=== PATIENT | female | born 1970 | race Asian ===

== ENCOUNTER 2021-11-06 16:33 | Emergency (ER) | payer BC ==
[~2021-11-06] VITALS: Ht 149.9 cm; Wt 54.1 kg
[2021-11-06 16:36] VITALS: BP 143/80
[2021-11-06] MEDS ORDERED: cephALEXin 500 MG CAP PO ONE (17:30)
[2021-11-06 18:33] LABS: APPEARANCE,URINE CLEAR (CLEAR); BILIRUBIN,URINE NEGATIVE (NEGATIVE); BLOOD, URINE NEGATIVE (NEGATIVE); COLOR,URINE YELLOW (YELLOW); LEUKOCYTE ESTERASE ,URINE NEGATIVE (NEGATIVE); NITRITE, URINE NEGATIVE (NEGATIVE); UGLUCOSE NEGATIVE (NEGATIVE)
[2021-11-06] MEDS ORDERED: PYR100 PO (18:44)
[2021-11-06] MEDS ORDERED: CEPH-588 PO (18:44)
[2021-11-06 19:05] VITALS: BP 139/92
== END 2021-11-06 19:06 | disposition home or self-care (01) ==
LOC: MED 16:33
DX: R30.0 Dysuria (principal); I10 Essential (primary) hypertension; R10.30 Lower abdominal pain, unspecified; Z90.710 Acquired absence of both cervix and uterus; Z79.2 Long term (current) use of antibiotics; Z79.899 Other long term (current) drug therapy
CPT/HCPCS: 81003; 87086; 99283